=== PATIENT | female | born 1985 | race Asian ===

== ENCOUNTER 2023-12-05 14:10 | Emergency (ER) | payer SELFPAY ==
[~2023-12-05] VITALS: Ht 165.1 cm; Wt 57.0 kg
[2023-12-05 14:19] VITALS: O2SAT 98
[2023-12-05 15:42] LABS: EOSINOPHILS % 1.7 % (0.0-5.0); HEMATOCRIT. 41.1 % (36.0-48.0); LYMPHOCYTES % 34.7 % (20.0-50.0); MEAN CORPUSCULAR HEMOGLOBIN 31.9 pg (28.0-32.0); MEAN CORPUSCULAR HGB CONC 34.1 g/dL (31.0-37.0); MEAN CORPUSCULAR VOLUME 93.6 fL (81.0-99.0); MEAN PLATELET VOLUME 9.3 fl (7.4-10.4); MONOCYTES % 5.7 % (2.0-8.0); NEUTROPHILS % 56.9 % (40.0-76.0); PLATELET 235 x1000/uL (130-400); RED BLOOD CELL COUNT 4.39 mill/uL (4.2-5.4); RED CELL DISTRIBUTION WIDTH 11.8 % (11.6-14.6); WHITE BLOOD COUNT 5.6 x1000/uL (4.5-11.0)
[2023-12-05 15:49] LABS: CARBON DIOXIDE 27 mEq/L (21-32); CHLORIDE 107 mEq/L (98-107); POTASSIUM 4.2 mEq/L (3.5-5.1); SODIUM 139 mEq/L (136-145)
[2023-12-05 15:50] LABS: CALCIUM 9.6 mg/dL (8.7-10.4)
[2023-12-05 15:54] LABS: CREATININE 0.7 mg/dL (0.6-1.0)
[2023-12-05 15:55] LABS: ACETAMINOPHEN < 2 ug/mL (10-30); GLUCOSE 84 mg/dL (70-105); UREA NITROGEN BLOOD 8 mg/dL (9-23)
[2023-12-05 15:57] LABS: CREATINE KINASE 82 IU/L (34-145); THYROID STIMULATING HORMONE 2.42 uIU/mL (0.55-4.78)
[2023-12-05 15:59] LABS: HCG SCREEN NEGATIVE
[2023-12-05 16:01] LABS: AMMONIA < 17 uMol/L (<32)
[2023-12-05 16:07] LABS: ETHANOL BLOOD < 10 mg/dL (<10)
[2023-12-05 17:13] LABS: CLARITY URINE CLEAR (CLEAR); COLOR URINE YELLOW (YELLOW); GLUCOSE URINE NEGATIVE (NEGATIVE); KETONES URINE NEGATIVE (NEGATIVE); LEUKOCYTE ESTERASE URINE TRACE (NEGATIVE); NITRITE URINE NEGATIVE (NEGATIVE); OCCULT BLOOD URINE NEGATIVE (NEGATIVE); PROTEIN URINE NEGATIVE (NEGATIVE); SPECIFIC GRAVITY URINE 1.009 (1.005-1.030); UROBILINOGEN URINE 0.2 E.U./dL (0.2-1.0)
[2023-12-05 17:29] LABS: *AMPHETAMINES SCREEN URINE NEGATIVE (NEGATIVE); *BARBITURATES SCREEN URINE NEGATIVE (NEGATIVE); *BENZODIAZEPINES SCREEN URINE NEGATIVE (NEGATIVE)
[2023-12-05 17:30] LABS: *COCAINE SCREEN URINE NEGATIVE (NEGATIVE); CANNABINOID URINE SCREEN NEGATIVE (NEGATIVE); ECSTASY MDMA SCREEN URINE NEGATIVE (NEGATIVE); METHADONE URINE SCREEN NEGATIVE (NEGATIVE); OPIATES URINE SCREEN NEGATIVE (NEGATIVE); PHENCYCLIDINE URINE SCREEN NEGATIVE (NEGATIVE)
[2023-12-05 17:38] LABS: BACTERIA URINE 1+; RBC URINE 0-2 /hpf (0-2); SQUAMOUS EPITHELIAL CELL URINE 1+ /lpf (RARE/1+); WBC URINE 0-2 /hpf (0-2)
[2023-12-05] MEDS ORDERED: MIDAZOLAM HCL 2 MG/2 ML VIAL IV ONE (18:45)
[2023-12-05] MEDS: LORAZEPAM 2MG/ML INJ IM ONE (19:00)
[2023-12-05] MEDS: HALOPERIDOL LACTATE 5MG/ML VIAL IM ONE (19:00)
[2023-12-05] MEDS: DIPHENHYDRAMINE 50MG/ML VIAL IM ONE (19:00)
[2023-12-06] MEDS: QUETIAPINE FUMARATE 25MG TABLET PO SCH (21:00)
[2023-12-09 09:49] VITALS: BP 114/73; PULSE 84; RESP 18; TEMP 36.66960; O2SAT 98
== END 2023-12-09 09:50 | disposition home or self-care (01) ==
LOC: ER 14:56
DX: F41.0 Panic disorder [episodic paroxysmal anxiety] (principal); F23 Brief psychotic disorder; Z20.822 Contact with and (suspected) exposure to COVID-19
CPT/HCPCS: 80305; 80048; 81003; 80307; 80329; 80320; 82140; 82550; 84703; 84443; 85025; 36415; 70450; 93005; 96372; 99285; 87426; J1200; J1630; J2060; Z7610 ×3; G0480